=== PATIENT | female | born 1980 | race Caucasian/White ===

== ENCOUNTER 2016-08-16 11:15 | Emergency (ER) | payer OTHER ==
[~2016-08-16] VITALS: Ht 157.5 cm; Wt 74.8 kg
[~2016-08-16 11:15] MED LIST: SYNTHROID 125 MCG; SYNTHROID0.1 MG PO; SYNTHROID0.15 MG PO; SYNTHROID0.175 MG PO
[2016-08-16 11:22] VITALS: BP 127/75
--- NOTE | 2016-08-16 11:30 | NUR ---
PATIENT AMBULATED TO BED 7 AT THIS TIME.
--- NOTE | 2016-08-16 11:31 | NUR ---
PT PRESENTS TO ED W/ C/O LEFT SIDED ANTERIOR CHEST WALL PAIN RADIATING NECK LEFT ARM X 3 DAYS--- PAIN INCREASES WITH MOVEMENT;PAIN SCALE OF 9/10.HX HYPOTHYROID, ANXIETY. DENIES SOB/HEADACHE/DIZZINESS/N/V/FEVER.PT IS AAOX4;HOB ELEVATED;ALL MONITORS PLACED IN,SAFETY PRECAUTION INSTITUTED;MD MADE AWARE OF PT'S CONDITION.
--- NOTE | 2016-08-16 11:46 | NUR ---
DR BALL AT BEDSIDE
--- NOTE | 2016-08-16 11:54 | NUR ---
Patient discharged with v/s stable. Written and verbal after care instructions given and explained.Patient alert, oriented and verbalized understanding of instructions. Ambulatory with steady gait. All questions addressed prior to discharge. ID band removed. Patient advised to follow up with PMD. Rx of IBUPROFEN given. Patient educated on indication of medication including possible reaction and side effects. Opportunity to ask questions provided and answered.ADVISED PT TO AVOID STRENOUS ACTIVITIES FOR THE MOMENT UNTIL PAIN SUBSIDED AND PT AGREED TO IT.
[2016-08-16 11:55] VITALS: BP 125/81
== END 2016-08-16 11:54 | disposition home or self-care (01) ==
LOC: MED 11:15
DX: S16.1XXA Strain of muscle, fascia and tendon at neck level, initial encounter (principal); R07.89 Other chest pain; R03.0 Elevated blood-pressure reading, without diagnosis of hypertension; F41.9 Anxiety disorder, unspecified; X58.XXXA Exposure to other specified factors, initial encounter; Y93.89 Activity, other specified; Y92.89 Other specified places as the place of occurrence of the external cause; Y99.8 Other external cause status

== ENCOUNTER 2017-05-13 22:29 | Emergency (ER) | payer OTHER ==
[~2017-05-13] VITALS: Ht 157.5 cm; Wt 77.6 kg
[~2017-05-13 22:29] MED LIST changes: +LEVO0.155 PO; -SYNTHROID 125 MCG; -SYNTHROID0.1 MG PO; -SYNTHROID0.15 MG PO; -SYNTHROID0.175 MG PO
[2017-05-13 22:39] VITALS: BP 136/97
--- NOTE | 2017-05-13 22:42 | NUR ---
PT TAKEN TO BED 3
--- NOTE | 2017-05-13 22:43 | NUR ---
Dr. Adams evaluating patient at bedside.
--- NOTE | 2017-05-13 22:51 | NUR ---
36Y/F PT. PRESENTS TO ED WITH C/O ABDOMINAL PAIN X 1 DAY. PT. HX. UMBILICAL HERNIA, NO SX. TODAY PAIN AFTER PUSHING BY WEARING JEANS. HX. HYPOTHYROIDISM. AAO X4, AMBULATORY WITH STEDAY GAIT. RESPIRATIONS ROOM AIR, EVEN AND UNLABORED. ABDOMEN SOFT, NON TENDER, ACTIVE BS X4. C/O PAIN 6/. VSS, ER MADE AWARE OF PT. STATUS.
[2017-05-14 00:36] VITALS: BP 136/97
--- NOTE | 2017-05-14 00:36 | NUR ---
Patient discharged with v/s stable. Written and verbal after care instructions given and explained. Patient alert, oriented and verbalized understanding of instructions. Ambulatory with steady gait. All questions addressed prior to discharge. ID band removed. Patient advised to follow up with PMD. Rx of MOTRIN 600 MG, NORCO 5/325 MG given. Patient educated on indication of medication including possible reaction and side effects. Opportunity to ask questions provided and answered.
== END 2017-05-14 00:36 | disposition home or self-care (01) ==
LOC: MED 22:29
DX: K42.9 Umbilical hernia without obstruction or gangrene (principal)
CPT/HCPCS: 99284

== ENCOUNTER 2018-10-05 22:23 | Emergency (ER) | payer OTHER ==
[~2018-10-05] VITALS: Ht 157.5 cm; Wt 77.6 kg
[2018-10-05 22:25] VITALS: BP 130/90
--- NOTE | 2018-10-05 22:28 | NUR ---
VISUAL ACUITY BOTH EYE 20/20, RT EYE 20/15, LEFT 20/20
--- NOTE | 2018-10-05 22:28 | NUR ---
TO LOBBY A/W BED, AMBULATORY
[2018-10-05 22:30] VITALS: BP 130/90
--- NOTE | 2018-10-05 22:53 | NUR ---
PATIENT AMBULATED TO ER BED 12.
--- NOTE | 2018-10-05 22:57 | NUR ---
38 y/o f presented to ED with c/o R eye pain and burning x1 hour ago. AAOx4. Per PT, " my eye has been really dry. i took my contact out and it got stuck." Redness noted to R eye. no visual changes at this time. ERMD notified. Will continue to monitor.
--- NOTE | 2018-10-06 00:02 | NUR ---
Patient discharged with v/s stable. Written and verbal after care instructions given and explained. Patient alert, oriented and verbalized understanding of instructions. Ambulatory with steady gait. All questions addressed prior to discharge. ID band removed. Patient advised to follow up with PMD. Rx of Ciloxan given. Patient educated on indication of medication including possible reaction and side effects. Opportunity to ask questions provided and answered.
== END 2018-10-06 00:02 | disposition home or self-care (01) ==
LOC: MED 22:23
DX: H10.9 Unspecified conjunctivitis (principal); B96.89 Other specified bacterial agents as the cause of diseases classified elsewhere; Z79.899 Other long term (current) drug therapy
CPT/HCPCS: 81002; 81025; 99283